=== PATIENT | female | born 1985 | race American Indian/Alaskan Native ===

== ENCOUNTER 2016-09-22 05:13 | Emergency (ER) | payer BC, OTHER ==
[2016-09-22 05:35] VITALS: BP 142/98
== END 2016-09-22 06:44 | disposition left against medical advice (07) ==
LOC: ED 05:13
DX: J02.9 Acute pharyngitis, unspecified (principal); R50.9 Fever, unspecified; M79.1 Myalgia; R07.0 Pain in throat; I10 Essential (primary) hypertension; Z53.21 Procedure and treatment not carried out due to patient leaving prior to being seen by health care provider

== ENCOUNTER 2016-09-24 16:29 | Emergency (ER) | payer BC ==
--- NOTE | 2016-09-24 22:10 | Emergency Department Report ---
- General Chief Complaint: Upper Respiratory Infection Stated Complaint: SOB/BODY ACHES/COUGH/FEVER Time Seen by Provider: 09/24/16 22:03 Source: patient Mode of arrival: Ambulatory Limitations: No Limitations - History of Present Illness Initial Comments: 31 y/o female complain of cough .,fever and body ache that worsen over the last 2 days .pt state she was seen in another emergency and told she had a viral infection MD Complaint: fever, cough, sore throat Onset/Timin -: days(s) Severity: mild Severity scale (0 -10): 5 Quality: aching Consistency: constant Improves With: nothing Worsens With: nothing Associated Symptoms: fever, chills - Related Data Previous Rx's Medication Instructions Recorded Last Taken Type Dicyclomine [Bentyl] 20 mg PO QID #14 tablet 06/13/15 Unknown Rx Promethazine [Phenergan TAB] 25 mg PO Q6HR PRN #7 tab 06/13/15 Unknown Rx Allergies Allergy/AdvReac Type Severity Reaction Status Date / Time No Known Allergies Allergy Verified 09/22/16 05:34 ED Review of Systems ROS: Stated complaint: SOB/BODY ACHES/COUGH/FEVER Other details as noted in HPI Constitutional: chills, fever Eyes: denies: eye pain, eye discharge, vision change ENT: denies: ear pain, throat pain Respiratory: denies: cough, shortness of breath, wheezing Cardiovascular: denies: chest pain, palpitations Endocrine: no symptoms reported Gastrointestinal: nausea, other (left flank pain). denies: abdominal pain, diarrhea Genitourinary: denies: urgency, dysuria, discharge Musculoskeletal: denies: back pain, joint swelling, arthralgia Skin: denies: rash, lesions Neurological: denies: headache, weakness, paresthesias Psychiatric: denies: anxiety, depression Hematological/Lymphatic: denies: easy bleeding, easy bruising ED Past Medical Hx - Social History Smoking Status: Never Smoker Substance Use Type: Alcohol - Medications Home Medications: Home Medications Medication Instructions Recorded Confirmed Last Taken Type Dicyclomine [Bentyl] 20 mg PO QID #14 tablet 06/13/15 Unknown Rx Promethazine [Phenergan TAB] 25 mg PO Q6HR PRN #7 tab 06/13/15 Unknown Rx ED Physical Exam - General Limitations: No Limitations General appearance: alert, in no apparent distress - Head Head exam: Present: atraumatic, normocephalic - Eye Eye exam: Present: normal appearance - ENT ENT exam: Present: mucous membranes moist - Neck Neck exam: Present: normal inspection - Respiratory Respiratory exam: Present: normal lung sounds bilaterally. Absent: respiratory distress, wheezes - Cardiovascular Cardiovascular Exam: Present: regular rate, normal rhythm. Absent: systolic murmur, diastolic murmur, rubs, gallop - GI/Abdominal GI/Abdominal exam: Present: soft, normal bowel sounds - Extremities Exam Extremities exam: Present: normal inspection, full ROM - Back Exam Back exam: Present: normal inspection, muscle spasm. Absent: CVA tenderness (R) - Neurological Exam Neurological exam: Present: alert, oriented X3 - Psychiatric Psychiatric exam: Present: normal affect, normal mood - Skin Skin exam: Present: warm, dry, intact, normal color. Absent: rash ED Course Vital Signs 09/24/16 16:41 Temperature 100.4 F H Pulse Rate 112 H Respiratory 18 Rate Blood Pressure 131/87 O2 Sat by Pulse 99 Oximetry Critical care attestation.: If time is entered above; I have spent that time in minutes in the direct care of this critically ill patient, excluding procedure time. ED Disposition Condition: Stable
[2016-09-24] MEDS ORDERED: TORADOL ONE (23:43)
--- NOTE | 2016-09-24 23:55 | XRay Report ---
FINAL REPORT PROCEDURE: XR CHEST ROUTINE 2V TECHNIQUE: PA and lateral chest radiographs were obtained. CPT 00419 HISTORY: cough COMPARISON: No prior studies are available for comparison. FINDINGS: Heart: Normal. Mediastinum/Vessels: Normal. Lungs/Pleural space: Normal. Bony thorax: No acute osseous abnormality. Other: IMPRESSION: Normal examination.
[2016-09-25 00:01] LABS: Mucus,Urine 1+ /HPF
[2016-09-25 00:08] LABS: Bilirubin,Urine Negative (Negative); Ketones,Urine 80 mg/dL (Negative)
[2016-09-25 00:09] LABS: Leukocyte Esterase,Urine Negative (Negative); Nitrite,Urine Negative (Negative); Protein,Urine <30 mg dL mg/dL (Negative); Urobilinogen,Urine < 2.0 mg/dL (<2.0)
[2016-09-25 00:10] LABS: Blood,Urine Large (Negative)
[2016-09-25] MEDS ORDERED: NORCO 10/325 PO ONE (00:34)
[2016-09-25] MEDS ORDERED: TORADOL IM ONE (01:01)
[2016-09-25 01:53] LABS: Basophils % (Auto) 0.4 % (0.0-1.8); Mean Corpuscular HGB Conc 34 % (30-34); Mean Corpuscular Hemoglobin 30 pg (28-32); Mean Corpuscular Volume 87 fl (79-97); Platelet Count 153 K/mm3 (140-440); Red Blood Count 4.34 M/mm3 (3.65-5.03); Red Cell Distribution Width 12.4 % (13.2-15.2); White Blood Count 9.7 K/mm3 (4.5-11.0)
[2016-09-25 02:15] LABS: Anion Gap 19 mmol/L; BUN/Creatinine Ratio 15.71; Blood Urea Nitrogen 11 mg/dL (7-17); Calcium 8.4 mg/dL (8.4-10.2); Carbon Dioxide 22 mmol/L (22-30); Chloride 100.4 mmol/L (98-107); Glucose 100 mg/dL (65-100); Potassium 3.5 mmol/L (3.6-5.0); Sodium 138 mmol/L (137-145)
[2016-09-25] MEDS ORDERED: NACL 0.9% 1000 ML 1,000 ML IV ONE (02:26)
--- NOTE | 2016-09-25 02:41 | Emergency Department Report ---
HPI - General Chief Complaint: Upper Respiratory Infection Time Seen by Provider: 09/24/16 22:03 - HPI HPI: This is a 31-year-old demented female presents to the emergency department with complaint of a 4-5 day history of body aches, fever, mixed dry and productive cough, and body aches. She denies any nausea, vomiting, diarrhea. No recent travel or sick contacts at home. Patient has been trying Tylenol and Motrin for her symptoms and says that she still continues to get a fever between 99 and 101F. She has a history of hypertension. She does not currently have a primary care doctor. She denies any shortness of breath but occasionally will get some chest wall discomfort with her coughing which occurs with coughing fits. She denies tobacco abuse. More recently the patient has had some sharper pains to the left lower back. Patient has a history of a partial hysterectomy. ED Past Medical Hx - Past Medical History Previous Medical History?: Yes Hx Hypertension: Yes - Surgical History Past Surgical History?: Yes Additional Surgical History: hyst - Social History Smoking Status: Never Smoker Substance Use Type: Alcohol - Medications Home Medications: Home Medications Medication Instructions Recorded Confirmed Last Taken Type ALBUTEROL Inhaler [ProAir HFA 2 puff IH QID PRN #1 inhalation 09/25/16 Unknown Rx Inhaler] Azithromycin [Zithromax Z-SHI] 250 mg PO DAILY #6 tab 09/25/16 Unknown Rx Lisinopril [Zestril] 5 mg PO QDAY 09/25/16 09/25/16 09/24/16 History guaiFENesin/CODEINE [Robitussin AC] 5 ml PO Q6H PRN #80 oral.liqd 09/25/16 Unknown Rx ED Review of Systems ROS: Stated complaint: SOB/BODY ACHES/COUGH/FEVER Other details as noted in HPI Constitutional: chills, fever Eyes: denies: eye pain, eye discharge, vision change ENT: denies: ear pain, throat pain Respiratory: cough. denies: wheezing Cardiovascular: denies: chest pain, palpitations Endocrine: no symptoms reported Gastrointestinal: other (left flank pain). denies: abdominal pain, vomiting, diarrhea Genitourinary: denies: urgency, dysuria, discharge Musculoskeletal: back pain, myalgia. denies: joint swelling Skin: denies: rash, lesions Neurological: denies: headache, weakness, paresthesias Psychiatric: denies: anxiety, depression Hematological/Lymphatic: denies: easy bleeding, easy bruising Physical Exam - Physical Exam Vital Signs: Vital Signs 09/24/16 09/24/16 09/25/16 16:41 22:07 02:19 Temperature 100.4 F H 100.6 F H Pulse Rate 112 H 132 H Respiratory 18 26 H 18 Rate Blood Pressure 131/87 Blood Pressure 131/81 [Right] O2 Sat by Pulse 99 100 98 Oximetry Physical Exam: GENERAL: The patient is well-developed well-nourished. HEENT: Normocephalic. Atraumatic. Extraocular motions are intact. Patient has moist mucous membranes. Pupils equal reactive to light bilaterally. NECK: Supple. Trachea is midline. CHEST/LUNGS: Clear to auscultation. There is no respiratory distress noted. A dry cough heard during examination. HEART/CARDIOVASCULAR: Regular. There is mild tachycardia. There is no gallop rub or murmur. ABDOMEN: Abdomen is soft, nontender. Patient has normal bowel sounds. There is no abdominal distention. SKIN: Warm but dry. NEURO: The patient is awake, alert, and oriented. The patient is cooperative. The patient has no focal neurologic deficits. The patient has normal speech. MUSCULOSKELETAL: There is no tenderness or deformity. There is no limitation range of motion. There is no evidence of acute injury. Muscle strength 5 out of 5 for upper and lower extremities bilaterally. BACK: No midline thoracic or lumbar tenderness to palpation or deformity. There is some reproducible left-sided lumbar paraspinal tenderness to palpation. ED Course Vital Signs 09/24/16 09/24/16 09/25/16 16:41 22:07 02:19 Temperature 100.4 F H 100.6 F H Pulse Rate 112 H 132 H Respiratory 18 26 H 18 Rate Blood Pressure 131/87 Blood Pressure 131/81 [Right] O2 Sat by Pulse 99 100 98 Oximetry ED Medical Decision Making - Lab Data Result diagrams: 09/25/16 01:44 09/25/16 01:44 - Radiology Data Radiology results: report reviewed, image reviewed interpreted by me: Chest x-ray did not show any acute process. Heart is normal shape and size. No effusions. No pneumothorax. No signs of pneumonia seen. CT of the abdomen and pelvis without contrast shows no evidence of intestinal or urinary tract obstruction. No ileus or enteritis. The appendix is normal. Dominant 2.5 similar cyst in the right ovary. - Medical Decision Making 31-year-old female presents to the emergency department with a 4-5 day history of some fever that improves but does not appear to resolve at home. She also has cough, back pain and body aches. Patient presents with a low-grade fever and some moderate tachycardia. Chest x-ray does not show any pneumonia, pleural effusions or any acute process. Patient's labs are unremarkable including no signs of infection, electrolyte abnormalities, renal insufficiency or glucose abnormalities. Patient does not have a urinary tract infection. Influenza is negative. However there are 80 ketones in the urine showing dehydration. Patient already had a CT of the abdomen and pelvis ordered through triage by the nurse practitioner as there was concern with her area of back pain that she could have a kidney stone. CT did not show any signs of intestinal or urinary tract obstruction or any acute process. Patient was given some IV fluid resuscitation, pain medication and NSAIDs. Upon reevaluation she is feeling better and her vital signs have improved and are now all within normal limits. Patient will be discharged home with albuterol inhaler, Robitussin-AC, Z-Shi and referrals for primary care. - Differential Diagnosis bronchitis, pneumonia, influenza, viral syndrome Critical Care Time: No Critical care attestation.: If time is entered above; I have spent that time in minutes in the direct care of this critically ill patient, excluding procedure time. ED Disposition Clinical Impression: Bronchitis, Dehydration, Body aches Fever Qualifiers: Fever type: unspecified Qualified Code(s): R50.9 - Fever, unspecified Disposition: DISCHARGED TO HOME OR SELFCARE Is pt being admited?: No Does the pt Need Aspirin: No Condition: Stable Instructions: Acute Bronchitis (ED) Additional Instructions: These follow-up with a primary care doctor in the next few days. Return to the emergency department with any worsening of your symptoms or any acute distress. You can take Tylenol every 4 hours and Motrin every 6 hours, using weight- based dosing, as needed for fever or discomfort.You've been prescribed a medication that is sedating. Therefore this medication cannot be mixed with alcohol, or taken prior to driving, working, or being responsible for children. Prescriptions: ALBUTEROL Inhaler [ProAir HFA Inhaler] 2 puff IH QID PRN #1 inhalation PRN Reason: Shortness Of Breath guaiFENesin/CODEINE [Robitussin AC] 5 ml PO Q6H PRN #80 oral.liqd PRN Reason: Cough Azithromycin [Zithromax Z-SHI] 250 mg PO DAILY #6 tab Referrals: PRIMARY CARE, [Primary Care Provider] - 3-5 Days STACY COVARRUBIAS MD [Staff Physician] - 3-5 Days SAEID PEREIRA MD [Staff Physician] - 3-5 Days [facility] [Outside] - 3-5 Days Time of Disposition: 05:13
--- NOTE | 2016-09-25 03:02 | Cat Scan Report ---
FINAL REPORT PROCEDURE: CT ABDOMEN PELVIS WO CON TECHNIQUE: Computerized axial tomography of the abdomen and pelvis was performed without intravenous contrast. This study is performed without intravascular contrast material and its sensitivity for abdominal and pelvic pathology, including neoplasms, inflammation, abscess, free fluid, thrombosis, arterial dissection and infarction, is reduced compared with a contrast enhanced study. HISTORY: pain LT FLANK COMPARISON: No prior studies are available for comparison. FINDINGS: Visualized lower thorax: No significant abnormality. Liver: Normal size and attenuation. Spleen: Normal size and attenuation. Gallbladder and biliary system: Normal. Pancreas: Normal. Adrenals: Normal. Kidneys: Both kidneys have a normal size. No hydronephrosis. No renal masses or stones.. GI tract: No obstruction. No ileus or enteritis. The cecum, appendix and colon are normal.. Lymph nodes and mesentery: Normal. Vasculature: Normal. Bladder: Normal. Reproductive organs: There is a cyst on the right ovary this measures 2.5 centimeters.. Peritoneum: No free fluid. Musculoskeletal structures: No significant abnormality. Other: None. IMPRESSION: There is no evidence of intestinal or urinary tract obstruction. No ileus or enteritis. The appendix is normal. Dominant 2.5 centimeter cyst on the right ovary..
[2016-09-25] MEDS ORDERED: TYLENOL PO ONE (04:43)
[2016-09-25 05:03] VITALS: BP 111/67
== END 2016-09-25 05:42 | disposition home or self-care (01) ==
LOC: ED 16:29
DX: J40 Bronchitis, not specified as acute or chronic (principal); E86.0 Dehydration; M79.1 Myalgia; R50.9 Fever, unspecified; I10 Essential (primary) hypertension
CPT/HCPCS: 36415; 71020; 74176; 80048; 81001; 81025; 85025; 87400; 96360; 96372; 99284; J1885; J7030